=== PATIENT | male | born 1975 | race Caucasian/White ===

== ENCOUNTER 2016-09-02 15:24 | Emergency (ER) | payer OTHER | END 2016-09-02 17:40 | disposition home or self-care (01) | LOC: FER 15:24 | DX: S16.1XXA Strain of muscle, fascia and tendon at neck level, initial encounter (principal); S39.012A Strain of muscle, fascia and tendon of lower back, initial encounter; R51 Headache; M79.604 Pain in right leg; I10 Essential (primary) hypertension; F17.210 Nicotine dependence, cigarettes, uncomplicated; Z79.899 Other long term (current) drug therapy; V49.40XA Driver injured in collision with unspecified motor vehicles in traffic accident, initial encounter; Y92.410 Unspecified street and highway as the place of occurrence of the external cause | CPT/HCPCS: 70450; 72125; 72131 ==

== ENCOUNTER 2020-04-16 18:13 | Day surgery (SDCO) | payer OTHER ==
[~2020-04-16 18:13] MED LIST: ASPIRIN81 MG PO; AUGMENTIN 875-1 EACH PO; BIRLINTA PO; BRILINTA90 MG PO; CARVEDILOL 25MG25 MG PO; CARVEDILOL12.5 MG PO; DULCOLAX5 MG PO; ENDOCET 10-3251 EACH PO; ENTRESTO 49 MG1 EACH PO; IMDUR 30MG TABL30 MG PO; ISOSORBIDE MONO60 MG PO; LIPITOR40 MG PO; LISINOPRIL10 MG PO; LISINOPRIL2.5 MG PO; LOPRESSOR25 MG PO; NITROQUIK SL0.4 MG SL; OXYCODONE-ACET1 EAC1 PO; PERCOCET 10/321 EACH PO; PHENERGAN25 M1 PO; PLAVIX75 MG PO; PROAIR HFA8.5 GM INH; ZESTRIL5 MG PO
[2020-04-16 19:17] LABS: BASOPHIL 0.3 % (0-2); EOSINOPHIL 0.4 % (0-5); HCT 46.9 % (42.0-52.0); HGB 16.5 g/dl (13.2-18.0); LYMPHOCYTE 28.5 % (15-48); MCH 30.7 pg (25.0-31.0); MCHC 35.2 g/dL (32.0-36.0); MCV 87.2 fL (78.0-100.0); MONOCYTE 7.4 % (0-12); MPV 8.8 fL (6.0-9.5); NRBC 0; PLT 356 K/uL (150-400); RBC 5.38 M/uL (4.70-6.00); RDW 11.9 % (11.5-14.0); WBC 13.4 K/uL (4.0-10.5)
[2020-04-16 19:44] LABS: INR 0.96 (0.9-1.2); PROTHROMBIN TIME 12.1 SECONDS (11.4-13.6)
[2020-04-16 19:45] LABS: PTT 27.6 SECONDS (22.2-34.7)
[2020-04-16 19:55] LABS: ALBUMIN 4.5 g/dL (3.4-5.0); BILIRUBIN - TOTAL 0.3 mg/dL (0.2-1.0); CREATININE 1.07 mg/dL (0.67-1.17); GLOBULIN (CALCULATION) 3.8 g/dL; POTASSIUM 3.8 mmol/L (3.5-5.1); TOTAL PROTEIN 8.3 g/dL (6.4-8.2)
[2020-04-16 20:05] LABS: PRO-BNP 815 pg/mL (<125)
[2020-04-17] MEDS ORDERED: PRINIVIL10 MG PO (02:10)
[2020-04-17 03:42] LABS: CHOLESTEROL 175 mg/dL (<200); HDL 44 mg/dL (40-60); LDL - DIRECT 110 mg/dL (<100); TRIGLYCERIDES 116 mg/dL (<150)
[2020-04-17] MEDS ORDERED: ZESTRIL5 MG PO (08:12)
[2020-04-17] MEDS ORDERED: IMDUR 30MG TABL30 MG PO (08:12)
[2020-04-17] MEDS ORDERED: COREG 3.125M3.125 MG PO (08:12)
--- NOTE | 2020-04-17 11:12 | NUR ---
REPORTS HE LIVES WITH SON; INDEPENDENT; PLEASE ADVISE OF ANY D/C NEEDS
[2020-04-17] MEDS ORDERED: LIPITOR40 MG PO (11:40)
--- NOTE | 2020-04-18 09:05 | NUR ---
PT. D/C HOME WITH SON. NO NEEDS.
== END 2020-04-17 11:56 | disposition home or self-care (01) ==
LOC: FER 18:13 → FICU 04-17 00:36
PROVIDERS: Emergency Medicine; Hospitalist; ADMIT Internal Medicine
DX: R07.89 Other chest pain (principal); I25.10 Atherosclerotic heart disease of native coronary artery without angina pectoris; J44.9 Chronic obstructive pulmonary disease, unspecified; I25.5 Ischemic cardiomyopathy; G89.4 Chronic pain syndrome; K21.9 Gastro-esophageal reflux disease without esophagitis; E78.00 Pure hypercholesterolemia, unspecified; I25.2 Old myocardial infarction; F17.210 Nicotine dependence, cigarettes, uncomplicated; I11.0 Hypertensive heart disease with heart failure; I50.9 Heart failure, unspecified; Z95.810 Presence of automatic (implantable) cardiac defibrillator; Z95.5 Presence of coronary angioplasty implant and graft; Z79.02 Long term (current) use of antithrombotics/antiplatelets; Z79.82 Long term (current) use of aspirin; Z82.49 Family history of ischemic heart disease and other diseases of the circulatory system; Z20.822 Contact with and (suspected) exposure to COVID-19
CPT/HCPCS: 36415; 71045; 80053; 80061; 83690; 83880; 84484; 85025; 85379; 85610; 85730; 93005; G0378; J1170; J1650; J2270; J2405; Q9967; U0002

== ENCOUNTER 2020-10-02 18:44 | Emergency (ER) | payer OTHER ==
[~2020-10-02 18:44] MED LIST changes: +COREG 3.125M3.125 MG PO; +PRINIVIL10 MG PO
[2020-10-02 19:35] LABS: BASOPHIL 0.6 % (0-2); EOSINOPHIL 7.3 % (0-5); HCT 47.1 % (42.0-52.0); HGB 15.6 g/dl (13.2-18.0); LYMPHOCYTE 27.8 % (15-48); MCH 29.6 pg (25.0-31.0); MCHC 33.1 g/dL (32.0-36.0); MCV 89.4 fL (78.0-100.0); MONOCYTE 9.1 % (0-12); MPV 8.7 fL (6.0-9.5); NEUTROPHIL 54.6 % (41-80); NRBC 0; PLT 374 K/uL (150-400); RBC 5.27 M/uL (4.70-6.00); RDW 12.4 % (11.5-14.0); WBC 14.3 K/uL (4.0-10.5)
[2020-10-02 19:46] LABS: ALBUMIN 4.5 g/dL (3.4-5.0); BILIRUBIN - TOTAL 0.2 mg/dL (0.2-1.0); BUN/CREAT RATIO (CALC) 11.6 RATIO; CREATININE 1.21 mg/dL (0.67-1.17); GLOBULIN (CALCULATION) 4.1 g/dL; MAGNESIUM 2.1 mg/dL (1.8-2.4); POTASSIUM 3.6 mmol/L (3.5-5.1); TOTAL PROTEIN 8.6 g/dL (6.4-8.2)
== END 2020-10-02 22:26 | disposition home or self-care (01) ==
LOC: FER 18:44
PROVIDERS: Emergency Medicine
DX: R07.89 Other chest pain (principal); R06.02 Shortness of breath; I25.10 Atherosclerotic heart disease of native coronary artery without angina pectoris; F17.210 Nicotine dependence, cigarettes, uncomplicated; Z79.899 Other long term (current) drug therapy; Z95.810 Presence of automatic (implantable) cardiac defibrillator; Z98.61 Coronary angioplasty status; Z82.49 Family history of ischemic heart disease and other diseases of the circulatory system; W86.8XXA Exposure to other electric current, initial encounter; Y93.89 Activity, other specified; Y92.009 Unspecified place in unspecified non-institutional (private) residence as the place of occurrence of the external cause
CPT/HCPCS: 36415; 71045; 80053; 82550; 83735; 84484; 85025; 93005